=== PATIENT | female | born 1995 ===

== ENCOUNTER 2017-03-06 21:30 | Emergency (ER) | payer SELFPAY ==
[2017-03-06 21:31] VITALS: BP 142/79; PULSE 63; RESP 16; TEMP 98.2; O2SAT 99
[2017-03-06] MEDS ORDERED: ZOFR4TAB3 SL (21:49)
== END 2017-03-06 23:00 | disposition left against medical advice (07) ==
LOC: NED 21:30
DX: R11.10 Vomiting, unspecified (principal)
CPT/HCPCS: 99281